=== PATIENT | female | born 1940 | race Caucasian/White ===

== ENCOUNTER → 2023-05-11 | Day surgery (SDC) | payer MEDICARE ==
[~2023-05-11] MED LIST: Iopamidol-M 200 41% 10 ML VIAL FS ONE; Lidocaine 1% PF 5 ML VIAL ONE; Sodium Bicarbonate 2.5 MEQ/5 ML VIAL ONE
== END ==
LOC: CSHRAD 10:33
PROVIDERS: ATTEND Specialist
PROC: B02BYZZ Computerized Tomography (CT Scan) of Spinal Cord using Other Contrast (ICD-10-PCS; principal; 2023-05-11)
DX: M51.16 Intervertebral disc disorders with radiculopathy, lumbar region (principal); K80.20 Calculus of gallbladder without cholecystitis without obstruction
CPT/HCPCS: 62304; 72132; Q9966